=== PATIENT | male | born 1970 | race Caucasian/White ===

== ENCOUNTER 2020-02-22 14:34 | Inpatient (IN) | payer MEDICARE, OTHER ==
[~2020-02-22] VITALS: Ht 172.7 cm; Wt 118.0 kg
[~2020-02-22 14:34] MED LIST: CYCL-1 PO; LIDO700A32 TOP
[2020-02-22 15:11] LABS: BASOPHILS # (AUTO) 0.1 X10'3 (0-0.2); BASOPHILS % (AUTO) 1.3 % (0-1); EOSINOPHILS # (AUTO) 0.2 X10'3 (0-0.9); HEMATOCRIT 49.6 % (42.0-52.0); HEMOGLOBIN 16.9 g/dl (14.0-17.9); LYMPHOCYTES # (AUTO) 2.1 X10'3 (1.1-4.8); MEAN CORPUSCULAR HEMOGLOBIN 28.8 PG (27.0-31.0); MEAN CORPUSCULAR VOLUME 84.8 FL (78-98); MONOCYTES # (AUTO) 1.3 X10'3 (0-0.9); MONOCYTES % (AUTO) 11.9 % (2-12); NEUTROPHILS # (AUTO) 6.9 X10'3 (1.8-7.7); NEUTROPHILS % (AUTO) 64.8 % (42-75); PLATELET COUNT 323 X10'3 (140-440); RED BLOOD COUNT 5.85 X10'6 (4.70-6.10); RED CELL DISTRIBUTION WIDTH 13.7 % (11.5-14.5); WHITE BLOOD COUNT 10.7 X10'3 (4.5-11.0)
[2020-02-22 15:27] LABS: ALANINE AMINOTRANSFERASE 30 U/L (12-78); ALBUMIN 4.1 G/DL (3.4-5.0); ALBUMIN/GLOBULIN RATIO 1.1 (1.1-1.5); ALKALINE PHOSPHATASE 80 IU/L (46-116); ANION GAP 10 (8-16); ASPARTATE AMINO TRANSFERASE 14 U/L (10-37); BILIRUBIN,TOTAL 0.4 MG/DL (0.1-1.0); BLOOD UREA NITROGEN 24 MG/DL (7-18); BUN/CREATININE RATIO 17.8 (5.4-32.0); CHLORIDE 101 MMOL/L (99-107); CREATININE 1.35 MG/DL (0.60-1.10); GLUCOSE 227 MG/DL (70-104); POTASSIUM 4.3 MMOL/L (3.5-5.1); SODIUM 138 MMOL/L (135-145); TOTAL PROTEIN 7.8 G/DL (6.4-8.2); eGFR 56 ML/MIN
[2020-02-22] MEDS ORDERED: dextrose 50%-water 50ml dispensing syringe IV PRN ×2 (16:00)
[2020-02-22] MEDS ORDERED: potassium CL 10mEq/100ml bag 100 ML IV PRN ×2 (16:00)
[2020-02-22] MEDS ORDERED: magnesium Cl slow-release 64mg tablet PO PRN (16:00)
[2020-02-22] MEDS ORDERED: morphine 2 MG/ML inj. syringe IV PRN ×2 (16:00)
[2020-02-22] MEDS ORDERED: potassium Cl 20 mEq SR tablet PO PRN ×2 (16:00)
[2020-02-22] MEDS ORDERED: acetaminophen 325mg tablet PO PRN ×2 (16:00→17:55)
[2020-02-22] MEDS ORDERED: MESSAGE TO PHARMACY PO ONE (16:00)
[2020-02-22] MEDS ORDERED: magnesium 4gm in 100ml NS 100 ML IV PRN (16:00)
[2020-02-22] MEDS ORDERED: dextrose ORAL solution 15 GM/59 ML bottle PO PRN ×2 (16:00)
[2020-02-22] MEDS ORDERED: ondansetron/PF 4mg/2ml inj IV PRN (16:00)
[2020-02-22] MEDS ORDERED: mag hydrox/Alum hydrox/simeth 30ml oral suspension PO PRN (16:00)
[2020-02-22] MEDS ORDERED: magnesium hydroxide 30ml (MOM) UD suspension PO PRN (16:00)
[2020-02-22] MEDS ORDERED: glucagon, human recombinant 1mg kit SUBCUT PRN (16:00)
[2020-02-22] MEDS ORDERED: magnesium 2GM in 50ml NS 50 ML IV PRN (16:00)
[2020-02-22] MEDS ORDERED: nitroGLYCERIN 0.4mg SUBLingual tab SL PRN (16:10)
[2020-02-22] MEDS ORDERED: regadenoson 0.4mg/5ml syringe IV PRN (16:10)
[2020-02-22] MEDS ORDERED: metoprolol tartrate 1mg/ml inj IV PRN (16:10)
[2020-02-22] MEDS ORDERED: aminophylline 250mg/10ml inj. IV PRN (16:10)
--- NOTE | 2020-02-22 16:16 | NUR ---
aviation ordnance officer at bedside.
--- NOTE | 2020-02-22 16:42 | NUR ---
Tried calling report, Chika CANALES went to take a pt to ct,will be back in 15 minutes,ED CN made aware.
--- NOTE | 2020-02-22 16:45 | NUR ---
Patient in room MED 309. I have received report from NIGHT NURSE Yas and had the opportunity to ask questions and assume patient care.
[2020-02-22] MEDS ORDERED: NO HOME MEDS (17:07)
[2020-02-22] MEDS: aspirin 81mg tablet.DR PO SCH (17:10)
[2020-02-22 18:00] VITALS: BP 182/98
--- NOTE | 2020-02-22 18:00 | NUR ---
Problems reprioritized. Patient report given, questions answered & plan of care reviewed with Jolie CANALES.
[2020-02-22] MEDS: cloNIDine 0.1 mg tablet PO PRN (19:01)
--- NOTE | 2020-02-22 19:10 | NUR ---
Patient in room MED 309. I have received report from Chika CANALES and had the opportunity to ask questions and assume patient care.
[2020-02-22 19:12] LABS: HEMOGLOBIN A1C 7.8 % (4.5-6.2)
[2020-02-22] MEDS: K and/or MAG REPLACEMENT MC SCH (20:00)
[2020-02-22] MEDS: docusate sod 100mg capsule PO SCH (20:58)
[2020-02-22] MEDS: insulin glargine (Lantus) pen - multi-dose SQ SCH (21:15)
[2020-02-22 22:00] VITALS: BP 172/87
[2020-02-22] MEDS ORDERED: cloNIDine 0.1 mg tablet PO ONE (22:15)
[2020-02-23] VITALS (13 sets, daily range): BP systolic 98–168; BP diastolic 63–101
[2020-02-23] MEDS: cloNIDine 0.1 mg tablet PO PRN (01:37)
[2020-02-23 03:25] LABS: BASOPHILS # (AUTO) 0.1 X10'3 (0-0.2); BASOPHILS % (AUTO) 0.6 % (0-1); EOSINOPHILS # (AUTO) 0.2 X10'3 (0-0.9); EOSINOPHILS % (AUTO) 1.9 % (0-6); HEMATOCRIT 47.7 % (42.0-52.0); HEMOGLOBIN 15.8 g/dl (14.0-17.9); LYMPHOCYTES # (AUTO) 2.7 X10'3 (1.1-4.8); LYMPHOCYTES % (AUTO) 23.8 % (21-51); MEAN CORPUSCULAR HGB CONC 33.2 g/dL (33.0-36.5); MEAN CORPUSCULAR VOLUME 84.2 FL (78-98); MEAN PLATELET VOLUME 7.8 FL (7.4-10.4); MONOCYTES # (AUTO) 1.3 X10'3 (0-0.9); MONOCYTES % (AUTO) 11.3 % (2-12); NEUTROPHILS % (AUTO) 62.4 % (42-75); PLATELET COUNT 261 X10'3 (140-440); RED BLOOD COUNT 5.67 X10'6 (4.70-6.10); RED CELL DISTRIBUTION WIDTH 14.1 % (11.5-14.5); WHITE BLOOD COUNT 11.2 X10'3 (4.5-11.0)
[2020-02-23 03:30] LABS: ALANINE AMINOTRANSFERASE 24 U/L (12-78); ALBUMIN 3.7 G/DL (3.4-5.0); ALKALINE PHOSPHATASE 72 IU/L (46-116); ANION GAP 9 (8-16); ASPARTATE AMINO TRANSFERASE 13 U/L (10-37); BILIRUBIN,TOTAL 0.7 MG/DL (0.1-1.0); BLOOD UREA NITROGEN 22 MG/DL (7-18); BUN/CREATININE RATIO 19.1 (5.4-32.0); CALCIUM 9.1 MG/DL (8.5-10.1); CHLORIDE 102 MMOL/L (99-107); CREATININE 1.15 MG/DL (0.60-1.10); GLUCOSE 185 MG/DL (70-104); SODIUM 139 MMOL/L (135-145); TOTAL CARBON DIOXIDE 28.3 MMOL/L (24-32); TOTAL PROTEIN 7.3 G/DL (6.4-8.2); eGFR 67 ML/MIN
[2020-02-23 03:33] LABS: MAGNESIUM 1.8 MG/DL (1.5-2.4)
--- NOTE | 2020-02-23 06:33 | NUR ---
Patient in room MED 309. I have received report from Cyndi CANALES and had the opportunity to ask questions and assume patient care.
--- NOTE | 2020-02-23 06:34 | NUR ---
Patient in room MED 309. I have received report from onel mabry and had the opportunity to ask questions and assume patient care.
--- NOTE | 2020-02-23 06:35 | NUR ---
Problems reprioritized. Patient report given, questions answered & plan of care reviewed with regulo sykes.
[2020-02-23] MEDS: aspirin 81mg tablet.DR PO SCH (08:55)
[2020-02-23] MEDS: enoxaparin 40mg/0.4ml syringe SUBCUT SCH (08:55)
[2020-02-23] MEDS: docusate sod 100mg capsule PO SCH ×2 (08:55→20:52)
[2020-02-23] MEDS: K and/or MAG REPLACEMENT MC SCH ×2 (08:56→20:00)
[2020-02-23] MEDS ORDERED: pneumococcal 23-VAL P-sac vacc 25 mcg/0.5ml vial IMVAC ONE (10:00)
--- NOTE | 2020-02-23 12:54 | NUR ---
promotional table spacer PAGER ID: [phone] MESSAGE: [id number] SAEID RESULT- Exam is positive for a pattern of reversible perfusion seen in the inferior wall of the left ventricle suggestive of ongoing ischemia in this region. EF30%. (we are keeping pt NPO for now)
--- NOTE | 2020-02-23 12:59 | NUR ---
DM Consult: A1C 7.8. [facility] and [facility]N hx HTN/smoking. New DM DX this admit per EMR. DEVYN d/w RN who reports MD yet to see pt regarding new DM DX and pt possibly returning to [facility] today if CT imaging results from this AM are WNL. DEVYN placed written DM ed handout, RD contact information, new DM DX pamphlet, and new DM guideline booklet in pt chart. PO pending since NPO this AM for CT. No BM yet documented as constipated receiving routine colace. Will continue to monitor. Rec: 1. continue carb controlled diet 2. monitor for ONS needs 3. routine bowel care 4. written/verbal DM ed once official DM DX by MD 5. wt per rx Addendum: 02/23/20 at [address] Amended: Links added.
[2020-02-23] MEDS: lisinopril 20mg tablet PO SCH (13:15)
[2020-02-23] MEDS ORDERED: LIDOcaine 1% (10mg/ml)w/preservative injection 20ml MDV ONE (14:18)
[2020-02-23] MEDS ORDERED: midazolam 2 mg/2 ml injection ONE ×2 (14:18→14:45)
[2020-02-23] MEDS ORDERED: fentaNYL/PF 50MCG/1 ML 2ML syringe ONE (14:18)
[2020-02-23] MEDS ORDERED: iohexol 350 MG/ML 50ML vial IV ONE (14:19)
[2020-02-23] MEDS ORDERED: heparin 1,000unit/ml 10ml vial 10 ML ONE (14:19)
[2020-02-23] MEDS ORDERED: iohexol 350MG/ML 100ml bottle IV ONE (14:19)
--- NOTE | 2020-02-23 14:30 | NUR ---
report given to laboratory associate rn ,pts right groin prepped,pt cont to deny chest pain,cont npo
[2020-02-23] MEDS ORDERED: hydrALAZINE 20mg/ml inj. IV ONE (14:54)
[2020-02-23] MEDS ORDERED: metoprolol tartrate 1mg/ml inj IV ONE (14:57)
--- NOTE | 2020-02-23 15:31 | NUR ---
received report from boni,laborer pie bakery rn,right groin site cdi,soft,right PPP pt aware not to move right leg,bedrest 6 hours
[2020-02-23] MEDS: HYDROcodone/acetaminophen 5mg/325mg tablet PO PRN ×2 (16:47→20:54)
--- NOTE | 2020-02-23 18:00 | NUR ---
Patient in room MED 309. I have received report from Cyndi CANALES and had the opportunity to ask questions and assume patient care.
[2020-02-23] MEDS: insulin Lispro (HumaLOG) vial - multi-dose SQ SCH (18:40)
--- NOTE | 2020-02-23 18:46 | NUR ---
Problems reprioritized. Patient report given, questions answered & plan of care reviewed with onel Dave.
[2020-02-23] MEDS: insulin glargine (Lantus) pen - multi-dose SQ SCH (21:05)
--- NOTE | 2020-02-23 21:30 | NUR ---
Protocol for s/p manager labor relations position of supine has concluded; patient's groin site unremarkable for hematoma, rocio/new bleeding. Vital signs stable, minimal pain at groin site confirmed by patient.
[2020-02-24] MEDS: cloNIDine 0.1 mg tablet PO PRN ×2 (01:26→05:14)
[2020-02-24 02:00] VITALS: BP 138/72
[2020-02-24 06:00] VITALS: BP 166/90
[2020-02-24 06:00] LABS: BASOPHILS # (AUTO) 0.1 X10'3 (0-0.2); BASOPHILS % (AUTO) 0.6 % (0-1); EOSINOPHILS # (AUTO) 0.3 X10'3 (0-0.9); EOSINOPHILS % (AUTO) 2.6 % (0-6); HEMATOCRIT 47.2 % (42.0-52.0); LYMPHOCYTES # (AUTO) 2.4 X10'3 (1.1-4.8); LYMPHOCYTES % (AUTO) 24.1 % (21-51); MEAN CORPUSCULAR HEMOGLOBIN 28.6 PG (27.0-31.0); MEAN CORPUSCULAR HGB CONC 33.9 g/dL (33.0-36.5); MEAN CORPUSCULAR VOLUME 84.3 FL (78-98); MEAN PLATELET VOLUME 8.2 FL (7.4-10.4); MONOCYTES # (AUTO) 1.1 X10'3 (0-0.9); MONOCYTES % (AUTO) 11.1 % (2-12); NEUTROPHILS # (AUTO) 6.1 X10'3 (1.8-7.7); NEUTROPHILS % (AUTO) 61.6 % (42-75); PLATELET COUNT 298 X10'3 (140-440)
[2020-02-24 06:18] LABS: ALANINE AMINOTRANSFERASE 29 U/L (12-78); ALBUMIN 3.7 G/DL (3.4-5.0); ALKALINE PHOSPHATASE 77 IU/L (46-116); ANION GAP 7 (8-16); ASPARTATE AMINO TRANSFERASE 15 U/L (10-37); BILIRUBIN,TOTAL 0.8 MG/DL (0.1-1.0); BLOOD UREA NITROGEN 22 MG/DL (7-18); CALCIUM 9.1 MG/DL (8.5-10.1); CHLORIDE 102 MMOL/L (99-107); GLUCOSE 142 MG/DL (70-104); SODIUM 139 MMOL/L (135-145); TOTAL CARBON DIOXIDE 30.5 MMOL/L (24-32); TOTAL PROTEIN 7.5 G/DL (6.4-8.2); eGFR 71 ML/MIN
--- NOTE | 2020-02-24 06:26 | NUR ---
Problems reprioritized. Patient report given, questions answered & plan of care reviewed with DEVORA CANALES.
--- NOTE | 2020-02-24 06:31 | NUR ---
Patient in room MED 309. I have received report from onel Dave and had the opportunity to ask questions and assume patient care.
[2020-02-24] MEDS ORDERED: atorvastatin 20mg tablet PO SCH (08:00)
[2020-02-24] MEDS: K and/or MAG REPLACEMENT MC SCH (08:00)
[2020-02-24] MEDS: aspirin 81mg tablet.DR PO SCH (08:00)
[2020-02-24] MEDS: lisinopril 20mg tablet PO SCH (09:39)
[2020-02-24] MEDS: enoxaparin 40mg/0.4ml syringe SUBCUT SCH (09:40)
[2020-02-24] MEDS: docusate sod 100mg capsule PO SCH (09:40)
[2020-02-24] MEDS: insulin Lispro (HumaLOG) vial - multi-dose SQ SCH (09:52)
[2020-02-24 10:00] VITALS: BP 149/75
[2020-02-24] MEDS ORDERED: LANTUS SQ (10:36)
[2020-02-24] MEDS ORDERED: LISI-600 PO (10:36)
[2020-02-24] MEDS ORDERED: ATOR20TA66 PO (10:36)
[2020-02-24] MEDS ORDERED: ASPI-1071 PO (10:36)
--- NOTE | 2020-02-24 12:17 | NUR ---
reviewed all discharge instructions including information on post heart cath care,new dx diabetes,and htn confirmed with guard that discharge record of new prescriptions will be accepted by the [facility],report given to farida WHITFIELD dc'd from left hand,[facility] ceasar maza dc'd via w/c with all belongings
== END 2020-02-24 12:17 | DRG 287 ==
LOC: ER 14:34 → ED HOLD 15:56 → EEVIPCON 15:56 → OBSVTOIN 15:56 → MED 3N 17:32
PROVIDERS: ADMIT Internal Medicine; ATTEND Internal Medicine
PROC: 4A023N7 Measurement of Cardiac Sampling and Pressure, Left Heart, Percutaneous Approach (ICD-10-PCS; principal; 2020-02-23)
PROC: B2111ZZ Fluoroscopy of Multiple Coronary Arteries using Low Osmolar Contrast (ICD-10-PCS; 2020-02-23)
PROC: B2151ZZ Fluoroscopy of Left Heart using Low Osmolar Contrast (ICD-10-PCS; 2020-02-23)
PROC: 3E0234Z Introduction of Serum, Toxoid and Vaccine into Muscle, Percutaneous Approach (ICD-10-PCS; 2020-02-23)
PROC: 4A02XM4 Measurement of Cardiac Total Activity, External Approach (ICD-10-PCS; 2020-02-23)
PROC: 3E073KZ Introduction of Other Diagnostic Substance into Coronary Artery, Percutaneous Approach (ICD-10-PCS; 2020-02-23)
DX: R07.89 Other chest pain (principal); I42.9 Cardiomyopathy, unspecified; E11.9 Type 2 diabetes mellitus without complications; E66.01 Morbid (severe) obesity due to excess calories; E78.00 Pure hypercholesterolemia, unspecified; F12.90 Cannabis use, unspecified, uncomplicated; F17.210 Nicotine dependence, cigarettes, uncomplicated; G89.29 Other chronic pain; M54.9 Dorsalgia, unspecified; R94.39 Abnormal result of other cardiovascular function study; G47.30 Sleep apnea, unspecified; I10 Essential (primary) hypertension; Z79.899 Other long term (current) drug therapy; Z82.49 Family history of ischemic heart disease and other diseases of the circulatory system; Z23 Encounter for immunization; Z68.39 Body mass index [BMI] 39.0-39.9, adult; Z71.6 Tobacco abuse counseling
CPT/HCPCS: 36415; 71045; 78452; 80053; 82948; 83036; 83735; 84484; 85025; 87081; 90732; 93005; 93017; 93306; 93458; 94760; 99152; 99153; 99285; A4620; A6258; A9500; C1760; C1769; G0378; J0360; J1644; J1650; J1815; J2001; J2250; J3010; J3490; Q9967